=== PATIENT | male | born 1960 | race African-American/Black ===

== ENCOUNTER 2018-08-01 13:06 | Outpatient (CLI) | payer BC ==
--- NOTE | 2018-08-01 15:03 | ULT ---
RENAL ULTRASOUND: 08/01/2018 HISTORY: Right renal lesion seen on prior MRI. COMPARISON: None. TECHNIQUE: Multiplanar anna-scale sonographic imaging of the kidneys and urinary bladder obtained. FINDINGS: The right kidney measures 10.4 x 4.9 x 5.5 cm. There is an exophytic cyst involving the mid pole of the right kidney, measuring 2 cm. No hydronephrosis or stone noted on the right. The urinary bladde r is grossly unremarkable. The left kidney measures 10.9 x 5.7 x 5.8 cm and demonstrates no evidence of hydronephrosis, stone, or mass lesion. IMPRESSION: Right renal cyst. POS: EMILIANO
== END 2018-08-01 13:07 | disposition home or self-care (01) ==
LOC: SCSULT 13:06
PROVIDERS: ATTEND Family Medicine
DX: N28.9 Disorder of kidney and ureter, unspecified (principal); N28.1 Cyst of kidney, acquired
CPT/HCPCS: 76770

== ENCOUNTER 2020-02-09 12:34 | Outpatient (CLI) | payer BC ==
--- NOTE | 2020-02-09 14:41 | RAD ---
LEFT ANKLE 3 VIEWS: HISTORY: Ankle pain. Injury with pain. FINDINGS: Soft tissue swelling noted at the ankle both medially and laterally. No evidence of fracture. No ac caesar osseous abnormality. Small spur from the plantar calcaneus. IMPRESSION: No acute fracture identified. POS: OFF
== END 2020-02-09 12:35 | disposition home or self-care (01) ==
LOC: SCSRAD 12:34
PROVIDERS: ATTEND Family Medicine
DX: M25.572 Pain in left ankle and joints of left foot (principal)
CPT/HCPCS: 36415; 84550